=== PATIENT | female | born 1955 | race African-American/Black ===

== ENCOUNTER 2016-09-08 13:07 | Emergency (ER) | payer OTHER ==
[2016-09-08 13:30] VITALS: BP 149/67
--- NOTE | 2016-09-08 13:31 | ED Physician Documentation ---
General Adult - HISTORIAN Historian: patient - HPI Stated Complaint: left hand lac Chief Complaint: Laceration/Recheck/Suture Further Comments: yes (60 year old female patient presents with superficial laceration to left hand. Patient states she cut her hand with scissors while cutting a plastic tie off of her new kitchen utensils.) - ROS CONST: no problems EYES/ENT: none CVS/RESP: none GI/: none MS/SKIN/LYMPH: none NEURO/PSYCH: denies: headache - PAST HX Past History: hypertension Other History: diabetes Type 2 Allergies/Adverse Reactions: Allergies Allergy/AdvReac Type Severity Reaction Status Date / Time amlodipine besylate Allergy Verified 09/08/16 13:21 [From Norvasc] valsartan [From Diovan] Allergy Verified 09/08/16 13:21 Home Medications: Ambulatory Orders Medication Instructions Recorded Aspirin EC [Ecotrin] 81 mg PO DAILY 09/08/16 CloNIDine HCL [Catapress] 0.1 mg PO BID 09/08/16 Lansoprazole [Prevacid] 15 mg PO DAILY 09/08/16 Levothyroxine Sodium [Unithroid] 137 mcg PO DAILY 09/08/16 Loratadine [Vicks Qlearquil 10 mg PO DAILY 09/08/16 Allergy] Metformin HCl [Glucophage] 1,000 mg PO DAILY 09/08/16 Pravastatin Sodium [Pravachol] 40 mg PO DAILY 09/08/16 Triamterene/Hydrochlorothiazid 1 tab PO DAILY 09/08/16 [Triamterene-Hctz 37.5-25 mg Cp] - SOCIAL HX Smoking History: non-smoker - FAMILY HX Family History: No - VITAL SIGNS Vital Signs: Vital Signs Temp Pulse Resp BP Pulse Ox 97.9 F 69 16 149/67 96 09/08/16 13:17 09/08/16 13:17 09/08/16 13:17 09/08/16 13:17 09/08/16 13:17 - REVIEWED ASSESSMENTS Nursing Assessment Reviewed: Yes Vitals Reviewed: Yes ED Results Lab/Radiology - Orders Orders: ED Orders Category Date Time Status Further Nursing Orders 1T Care 09/08/16 13:29 Ordered General Adult Physical Exam - PHYSICAL EXAM GENERAL APPEARANCE: [id number] N EENT: LISE EXTREMITIES: non-tender, normal range of motion, no evidence of injury, no edema , other (.5 cm superficial laceration to left hand palmar aspect; proximal to thumb area) NEURO: oriented X3, CN's nml as tested, motor nml, sensation nml, mood/affect nml Discharge Clincal Impression: Laceration Referrals: Mohit Olvera MD [Primary Care Provider] - 2 Days Additional Instructions: Do not bandage a wound treated with an adhesive. The adhesive works like a bandage. Do not use antibiotic ointment as it can break down the adhesive. You can shower while the adhesive is on your skin, but do not take a bath or soak or scrub the area for 7 to 10 days. Dry your skin by patting it gently with a towel. The adhesive will peel off on its own, usually by 5 to 10 days. If after 10 days , you still have adhesive on you, you can use antibiotic ointment or petroleum jelly to get it off. You do not need to see the doctor again unless the wound doesnt heal well or you have signs of infection, such as redness, swelling, or pus.Your cut opens up again.You get a fever. You have redness or swelling around the cut, or pus drains from the Home Medications: Ambulatory Orders Aspirin EC [Ecotrin] 81 mg PO DAILY 09/08/16 CloNIDine HCL [Catapress] 0.1 mg PO BID 09/08/16 Lansoprazole [Prevacid] 15 mg PO DAILY 09/08/16 Levothyroxine Sodium [Unithroid] 137 mcg PO DAILY 09/08/16 Loratadine [Vicks Qlearquil Allergy] 10 mg PO DAILY 09/08/16 Metformin HCl [Glucophage] 1,000 mg PO DAILY 09/08/16 Pravastatin Sodium [Pravachol] 40 mg PO DAILY 09/08/16 Triamterene/Hydrochlorothiazid [Triamterene-Hctz 37.5-25 mg Cp] 1 tab PO DAILY 09/08/16 Condition: Stable Disposition: 01 HOME, SELF-CARE Decision to Admit: NO Decision Time: 13:30
== END 2016-09-08 13:38 | disposition home or self-care (01) ==
LOC: ED 13:07
DX: S61.412A Laceration without foreign body of left hand, initial encounter (principal); W45.8XXA Other foreign body or object entering through skin, initial encounter; Y93.9 Activity, unspecified; Y99.9 Unspecified external cause status; E11.9 Type 2 diabetes mellitus without complications; I10 Essential (primary) hypertension
CPT/HCPCS: 99282